=== PATIENT | female | born 2000 | race Caucasian/White ===

== ENCOUNTER → 2018-02-21 15:29 | Outpatient (CLI) | payer BC, SELFPAY ==
[2018-02-21 17:34] LABS: Absolute Lymphocyte Count 2.09 X10^3/ul (0.83-4.51); Absolute Neutrophil Count 5.5 X10^3/uL (2.0-7.7); Basophil# 0.03 X10^3/uL; Basophil% 0.4 % (0-1); Eosinophil# 0.22 X10^3/uL; Eosinophils% 2.6 % (0-5); Hematocrit 38.6 % (37-47); Hemoglobin 12.8 g/dl (12.0-15.0); Lymphocyte # 2.09 X10^3/ul (4.0); Lymphocyte % 24.4 % (19-41); Mean Corp Hgb Conc 33.2 g/gl (32-36); Mean Corpuscular Hgb 30.3 pg (27.0-32.0); Mean Corpuscular Volume 91.5 fL (81-99); Mean Platelet Vol. 11.2 fl (6.2-12.0); Monocyte# 0.72 X10^3/uL; Monocyte% 8.4 % (0-10); Neutrophil # 5.48 X10^3/uL (2.7-7.7); Neutrophil % 64.1 % (47-70); Platelet Count 304 K/mm3 (150-450); RBC Distribution Width CV 13.2 % (11.6-14.6); RBC Distribution Width SD 43.6 fl (35.1-43.9); Red Blood Count 4.22 M/mm3 (4.2-5.4); White Blood Count 8.6 K/mm3 (4.4-11.0)
[2018-02-21 17:42] LABS: POSITIVE COUNT NO; POSITIVE DIFFERENTIAL NO; POSITIVE MORPHOLOGY NO
[2018-02-21 19:16] LABS: Ferritin 13 ng/mL (8-252)
== END ==
PROVIDERS: Family Provider Family Medicine; PCP Family Medicine; Visit Provider Family Medicine
DX: D53.9 Nutritional anemia, unspecified (principal)
CPT/HCPCS: 36415; 82728; 85025

== ENCOUNTER → 2018-07-18 12:15 | Outpatient (CLI) | payer BC, SELFPAY ==
--- NOTE | 2018-07-18 12:17 | RAD_ITS ---
STUDY: X-RAY - RIGHT WRIST REASON FOR EXAM: Female, 18 years old. Right wrist pain TECHNIQUE: 3 view(s) of the wrist were obtained. COMPARISON: None. FINDINGS: Normal visualized distal radius and ulna. Normal radiocarpal articulation. Normal distal radioulnar articulation. Normal carpal bones. Normal carpal articulations. Normal carpometacarpal articulation of the thumb. Normal second through fifth carpometacarpal articulations. Normal visualized metacarpal bones. The soft tissue structures are unremarkable. RAD/Wrist min 3 Views IMPRESSION: Normal x-ray examination of the wrist. Electronically Signed: Dariusz Zafar DO at 8:25 EDT Tel , Service support ,
== END ==
PROVIDERS: Family Provider Family Medicine; PCP Family Medicine; Referring Provider Family Medicine; Visit Provider Family Medicine
DX: M25.531 Pain in right wrist (principal)
CPT/HCPCS: 73110

== ENCOUNTER 2018-10-16 11:00 | Outpatient (RCR) | payer BC, SELFPAY ==
[2018-09-23 08:07] VITALS: BMI 24.9
--- NOTE | 2018-09-23 09:58 | HP.OTEVAL ---
Patient's Visit Information BELEN CARVER is a 18 year old F, referred to Occupational Therapy by Chaparrita Becerra DO, with a diagnosis of R wrist impingement. Date of Evaluation: 09/23/18 Occupational Therapist: Kyara Killian - Subjective Subjective: Arrived from [facility] walk- over. 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 Lopez as pain has increased with weightbearing tasks. She noted that she is home until mid-October to receive treatments. - Pain Right Wrist 1 Pain Intensity Range: 1, 7, 8 - ROM Forearm: WFL Wrist: Flexion R 0-91, L 0-80; Extension R 0-50, L 0-65 MP: WFL PIP: WFL DIP: WFL ROM Comments: increased mobility noted with flexion. This indicated decreased stability of wrist. 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 - Quick DASH-Disab of Arm,Shoulder& Hand Quick DASH Score: 34.2100 - Hand/Wrist Evaluation Total Score of Pain & Functional Sections: 23 - Goals Goal:: Belen to increase R fisher mussel by 20 lbs to promote increased strength and stability of R wrist to promote increased strength and decreased pain with weightbearing tasks to promote returning to PLOF by ADL/IADls. Goal:: Jennifer to have no more than 1/10 pain with repetitive and weightbearing hand and wrist movements 80% of the time to promote increased stability and decrease impingement symptoms by d/c. Goal:: Jennifer to be (i) to complete proper wrist mechanics and alignment with all tasks, including yoga and tumbling tasks, to decrease potential impingement and promote increased ability to return to PLOF by d/c. Goal:: Jennifer to be (I) to complete HEP to promote increased strength and carpal stability of R wrist to promote increased ability to tolerate weightbearing exercises by d/c. - Rehabilitation General Assessment: Jennifer Glover, arrived for OT evaluation on this date of 09/23/18. She was referred from [facility] due to wrist impingement symptoms. She reports increased pain with all weightbearing tasks. OT to complete PRE strengthening, modalities to manage pain, and general training for proper wrist alignment and ergonomics. Rehabilitation Potential: Excellent - Anticipated Interventions Anticipated Interventions: A/AAROM/PROM, Strengthening, Modalities, Orthoses, Joint Protection/Energy Conservation, Ergonomic Education, Fine Motor Coord/Babak, ADL Training, Caregiver Training, Home Program - Visit Plan Frequency: 2x /Week Duration: 3-4 weeks General Plan: OT to promote increased PRE with strengthening program including oscillations, dart throwers movements, and intrinsic and isometric strengthening to promote stability of R wrist. Modalities to be used for pain management as needed and general educated to be completed on ergonomics and proper body positioning. TEXT: Thank you for the opportunity to evaluate your patient. For Medicare and Medicare HMO plans, please review the plan of care and approve it. It will need to be FAXED BACK to us at [phone] for Medicare purposes. Please let me know if there are questions or concerns regarding this plan of care. Physician Signature: Date:
--- NOTE | 2018-09-23 10:02 | HP.OTEVAL_ITS ---
Patient's Visit Information BELEN CARVER is a 18 year old F, referred to Occupational Therapy by Chaparrita Becerra DO, with a diagnosis of R wrist impingement. Date of Evaluation: 09/23/18 Occupational Therapist: Kyara Killian - Subjective Subjective: Arrived from [facility] walk- over. 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 Lopez as pain has increased with weightbearing tasks. She noted that she is home until mid-October to receive treatments. - Pain Right Wrist 1 Pain Intensity Range: 1, 7, 8 - ROM Forearm: WFL Wrist: Flexion R 0-91, L 0-80; Extension R 0-50, L 0-65 MP: WFL PIP: WFL DIP: WFL ROM Comments: increased mobility noted with flexion. This indicated decreased stability of wrist. - Strength Wrist: extension R 4-/5, L 4/5 Cloth Printer: flexed position 2 R 78, L 80 lbs; extended position 2 R 75, L 80 Lateral Pinch: R 18, L 16 Tripod Pinch: R 15, L 22 Tip-to-Tip Pinch: R 10, L 10 - Sensation Sensation Comments: Denies numbness or tingling. - Quick DASH-Disab of Arm,Shoulder& Hand Quick DASH Score: 34.2100 - Hand/Wrist Evaluation Total Score of Pain & Functional Sections: 23 - Goals Goal:: Belen to increase R supervisor scenic arts by 20 lbs to promote increased strength and stability of R wrist to promote increased strength and decreased pain with weightbearing tasks to promote returning to PLOF by ADL/IADls. Goal:: Jennifer to have no more than 1/10 pain with repetitive and weightbearing hand and wrist movements 80% of the time to promote increased stability and decrease impingement symptoms by d/c. Goal:: Jennifer to be (i) to complete proper wrist mechanics and alignment with all tasks, including yoga and tumbling tasks, to decrease potential impingement and promote increased ability to return to PLOF by d/c. Goal:: Jennifer to be (I) to complete HEP to promote increased strength and carpal stability of R wrist to promote increased ability to tolerate weightbearing exercises by d/c. - Rehabilitation General Assessment: Jennifer Glover, arrived for OT evaluation on this date of 09/23/18. She was referred from [facility] due to wrist impingement symptoms. She reports increased pain with all weightbearing tasks. OT to complete PRE strengthening, modalities to manage pain, and general training for proper wrist alignment and ergonomics. Rehabilitation Potential: Excellent - Anticipated Interventions Anticipated Interventions: A/AAROM/PROM, Strengthening, Modalities, Orthoses, Joint Protection/Energy Conservation, Ergonomic Education, Fine Motor Coord/Babak, ADL Training, Caregiver Training, Home Program - Visit Plan Frequency: 2x /Week Duration: 3-4 weeks General Plan: OT to promote increased PRE with strengthening program including oscillations, dart throwers movements, and intrinsic and isometric strengthening to promote stability of R wrist. Modalities to be used for pain management as needed and general educated to be completed on ergonomics and proper body positioning. TEXT: Thank you for the opportunity to evaluate your patient. For Medicare and Medicare HMO plans, please review the plan of care and approve it. It will need to be FAXED BACK to us at [phone] for Medicare purposes. Please let me know if there are questions or concerns regarding this plan of care. Physician Signature: Date:
--- NOTE | 2018-10-16 11:32 | HP.OTDCSUM ---
HP - OT D/C Summary It has been my pleasure to treat BELEN CARVER under orders from Chaparrita Becerra DO for the diagnosis of R wrist impingement for a total of 8 visit(s). Please see the following information for a summary of their discharge status. - Overall Improvement % Improvement: 65 - Objective Objective/Function: Reassessment completed on this date of 10/16/17. Measurements are as follows: ROM: Wrist: -flexion R 0-89, L 0-83. - extension R 0-56, L 0-64. Strength assessment: - All Round Logger flexed position R 83, L 87. - All Round Logger extended R 76, L 87. - Lateral Pinch R 22, L 16. - tripod R 20, L 20. - pincer R 11, L 9. 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 erecting crane operator extended positions 2: R 90, L 87 lbs. Jennifer has progressed with therapy. She will return to college and will be d/c at this time. - Goals Patient Goals: Regain Mobility, Regain Strength, Decrease Pain, Improve Fine Motor Skills, Use Hand/Wrist/Arm Normally Again, Decrease Tingling/Numbness, Increase ROM, Be More Independent in ADLS, Resume Former Household Responsibilities (Cooking,Cleaning,Yard, etc.), Resume Hobbies Goal:: Belen to increase R erecting crane operator by 20 lbs to promote increased strength and stability of R wrist to promote increased strength and decreased pain with weightbearing tasks to promote returning to PLOF by ADL/IADls. Goal:: Jennifer to have no more than 1/10 pain with repetitive and weightbearing hand and wrist movements 80% of the time to promote increased stability and decrease impingement symptoms by d/c. Goal:: Jennifer to be (i) to complete proper wrist mechanics and alignment with all tasks, including yoga and tumbling tasks, to decrease potential impingement and promote increased ability to return to PLOF by d/c. Goal:: Jennifer to be (I) to complete HEP to promote increased strength and carpal stability of R wrist to promote increased ability to tolerate weightbearing exercises by d/c. - Plan Plan: Jennifer has progressed with all therapy tasks. She has completed carpal stability and strengthening exercises to promote stability of R wrist to help decrease pain. Pain has decreased but not completed dissipated. Pain is only when she completed weightbearing tasks and she has been instructed in adapted and compensation techniques to continue preferred leisure tasks of thicker yoga mat, fisted hand when weightbearing, or raise heal of hand up to complete activating flexors more than extensor. She is to complete HEP as instructed. Handouts provided and demonstrated understanding. - D/C Information If there are questions or concerns regarding this patient's occupational therapy, please fell free to call me at [phone]. Thank you for the referral of this patient. Sincerely, Kyara Killian
--- OUTSIDE RECORDS SUMMARY | 2018-12-25 14:37 | XMS RPT_ITS ---
:2000 Author Organization OHIP Care Team Providers Name Role Phone Chaparrita Becerra Attending Unavailable Yajairaiff, Kathie Referring Unavailable Chaparrita Becerra Attending Unavailable Jolliff, Kathie Primary Care Unavailable Chaparrita Becerra Referring Unavailable JolliffKathie Attending Unavailable Jolliff, Kathie Primary Care Unavailable Jolliff, Kathie Attending Unavailable Jolliff, Kathie Referring Unavailable Jolliff, Kathie Primary Care Unavailable PROBLEMS PROBLEMS DATE TYPE CONDITION / CODE ATTENDING STATUS SOURCE 10/20/2018 Unknown M25.831 - Other Chaparrita Becerra Active [place] specified joint Community disorders, right Hospital wrist / Repository M25.831(ICD-10) 07/18/2018 Unknown M25.532 - Pain Kathie Cody Active [place] in left wrist / Community M25.532(ICD-10) Hospital Repository PROCEDURES PROCEDURES No Procedure Records FoundRESULTS RESULTS OT D/C SUMMARY Observed: 10/17/2018 Status: F Source: NADIA 12:50 PM [facility] REPOS[facility] Occupational [facility] [address] [place] [address] / REHABILITATION SERVICES DISCHARGE SUMMARY MR#: [id number] Acct: [id number] Name: SHELBY CARVER Rep #: [id number] : 2000 18 From: Kyara Killian Referring Dr.: Chaparrita Becerra DO Status: REG RCR Eval Date: Discharge Date: - OT D/C Summary It has been my pleasure to treat SHELBY CARVER under orders from Chaparrita Becerra DO, for the diagnosis of R wrist impingement for a total of 8 visit(s). Please see the following information for a summary of their discharge status. - Overall Improvement % Improvement: 65 - Objective Objective/Function: Reassessment completed on this date of 10/16/17. Measurements are as follows: ROM: Wrist: -flexion R 0-89, L 0-83. - extension R 0-56, L 0-64. Strength assessment: - Cattle Feeder flexed position R 83, L 87. - Cattle Feeder extended R 76, L 87. - Lateral Pinch R 22, L 16. - tripod R 20, L 20. - pincer R 11, L 9. Previous strength measurements for yarn handler only occurring at end of session on 10/14/17 are as follows: Cattle Feeder in flexed position 2: R 100, L 75 lbs. yarn handler extended positions 2: R 90, L 87 lbs. Jennifer has progressed with therapy. She will return to college and will be d/c at this time. - Goals Patient Goals: Regain Mobility, Regain Strength, Decrease Pain, Improve Fine Motor Skills, Use Hand/Wrist/Arm Normally Again, Decrease Tingling/Numbness, Increase ROM, Be More Independent in ADLS, Resume Former Household Responsibilities (Cooking,Cleaning,Yard, etc.), Resume Hobbies Goal:: Shelby to increase R yarn handler by 20 lbs to promote increased strength and stability of R wrist to promote increased strength and decreased pain with weightbearing tasks to promote returning to PLOF by ADL/IADls. Goal:: Jennifer to have no more than 1/10 pain with repetitive and weightbearing hand and wrist movements 80% of the time to promote increased stability and decrease impingement symptoms by d/c. Goal:: Jennifer to be (i) to complete proper wrist mechanics and alignment with all tasks, including yoga and tumbling tasks, to decrease potential impingement and promote increased ability to return to PLOF by d/c. Goal:: Jennifer to be (I) to complete HEP to promote increased strength and carpal stability of R wrist to promote increased ability to tolerate weightbearing exercises by d/c. - Plan Plan: Jennifer has progressed with all therapy tasks. She has completed carpal stability and strengthening exercises to promote stability of R wrist to help decrease pain. Pain has decreased but not completed dissipated. Pain is only when she completed weightbearing tasks and she has been instructed in adapted and compensation techniques to continue preferred leisure tasks of thicker yoga mat, fisted hand when weightbearing, or raise heal of hand up to complete activating flexors more than extensor. She is to complete HEP as instructed. Handouts provided and demonstrated understanding. - D/C Information If there are questions or concerns regarding this patient's occupational therapy, please fell free to call me at [phone]. Thank you for the referral of this patient. Sincerely, Kyara Killian <Electronically signed by Kyara Killian > 10/17/18 0130 CC: Kathie Cody MD; Chaparrita Becerra DO KMB Signed ORTHOPEDIC VISIT Observed: 09/23/2018 Status: F Source: [place] REPORT 1:27 PM [facility] Orthopaedics AND Sports Medicine [address] [place] [address] OFFICE VISIT Date of Service: 09/23/18 MR#: [id number] Acct: [id number] Name: SHELBY CARVER Rep #: [id number] : 2000 Provider: Chaparrita Becerra DO Age/Sex: 18/F Location: [facility] Status: Signed Intake Vital Signs09/23/18 Height 5 ft 4 in 09/23/18 Weight: 145 lb 09/23/18 Body Mass Index (BMI) 24.9 Intake Visit Reasons: LEFT WRIST Is patient in pain?: Yes HPI LEFT WRIST: Details: SHELBY CARVER is a 18 year old F here today for right wrist pain since the summer with no known injury. She saw her pcp who did xrays that were negative. She then referred her to us, Ruby is in [place] and was just able to see us over the holidays. 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 No pain with rom, no swelling and no bracing. Denies numbness, tingling or other associated symptoms. She has a strong family history of wrist cysts and RA. She does complain of joint pain with dancing but nothing upper body. Ortho Exam Right Wrist/Hand Skin/Wound: Yes CDI, No Swelling Contralateral Normal: Yes A1 agustin trigger: No Right Wrist: Yes ROM-Extension 0-60, ROM-Supination 0-90, ROM-Flexion 0-80 and ROM-Pronation 0-80; no Diaz Test Motor: EPL: 5, FDP-2: 5, 1st Dorsal Interosseous: 5, APB: 5 Sensation: Radial: I, Ulnar: I, Median: I Left Wrist/Hand Skin/Wound: No Swelling Assessment AND Plan 1. Impingement syndrome of right wrist M25.831 Plan Personally reviewed the patient's medical history, medications, surgeries and recent exams if available. X-rays were reviewed. There is no obvious fracture, dislocation, or lucency noted. Educated on the anatomy of the wrist and explained that she has impingement, there is no palpable cyst today and no ligamentous laxity. Her treatment options are do nothing, wear a brace, OT for ultrasound. If that fails we can try and injection or order an MRI. Follow up as needed or sooner if pain, swelling, numbness or associated symptoms, or concerns develop. All questions answered. Patient in agreement of plan. Coding Level of Care Code Off vis,new,level 3 Diagnoses Impingement syndrome of right wrist M25.831 09/23/18 1327 <Electronically signed by Chaparrita Becerra DO> Date Chaparrita Becerra DO Cosigner Signature: Date (if applicable) CC: OT GENERAL EVALUATION Observed: 09/23/2018 Status: F Source: NADIA 10:16 AM [facility] Occupational [facility] [address] [place] [address] Fax REHABILITATION SERVICES INITIAL EVALUATION MR#: [id number] Acct: [id number] Name: SHELBY CARVER Rep #: [id number] : 2000 18 From: Kyara Killian Referring Dr.: Chaparrita Becerra DO Status: REG RCR Insurance: ALLI Sylviemn Date: SELF PAY INSURANCE Patient's Visit Information SHELBY CARVER is a 18 year old F, referred to Occupational Therapy by Chaparrita Becerra DO, with a diagnosis of R wrist impingement. Date of Evaluation: 09/23/18 Occupational Therapist: Kyara Killian - Subjective Subjective: Arrived from [facility] ortho walk- over. 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 Lopez as pain has increased with weightbearing tasks. She noted that she is home until mid-October to receive treatments. - Pain Right Wrist 1 Pain Intensity Range: 1, 7, 8 - ROM Forearm: WFL Wrist: Flexion R 0-91, L 0-80; Extension R 0-50, L 0-65 MP: WFL PIP: WFL DIP: WFL ROM Comments: increased mobility noted with flexion. This indicated decreased stability of wrist. - Strength Wrist: extension R 4-/5, L 4/5 Cattle Feeder: flexed position 2 R 78, L 80 lbs; extended position 2 R 75, L 80 Lateral Pinch: R 18, L 16 Tripod Pinch: R 15, L 22 Tip-to-Tip Pinch: R 10, L 10 - Sensation Sensation Comments: Denies numbness or tingling. - Quick DASH-Disab of Arm,Shoulder AND Hand Quick DASH Score: 34.2100 - Hand/Wrist Evaluation Total Score of Pain AND Functional Sections: 23 - Goals Goal:: Shelby to increase R yarn handler by 20 lbs to promote increased strength and stability of R wrist to promote increased strength and decreased pain with weightbearing tasks to promote returning to PLOF by ADL/IADls. Goal:: Jennifer to have no more than 1/10 pain with repetitive and weightbearing hand and wrist movements 80% of the time to promote increased stability and decrease impingement symptoms by d/c. Goal:: Jennifer to be (i) to complete proper wrist mechanics and alignment with all tasks, including yoga and tumbling tasks, to decrease potential impingement and promote increased ability to return to PLOF by d/c. Goal:: Jennifer to be (I) to complete HEP to promote increased strength and carpal stability of R wrist to promote increased ability to tolerate weightbearing exercises by d/c. - Rehabilitation General Assessment: Jennifer Glover, arrived for OT evaluation on this date of 09/23/18. She was referred from [facility] ortho due to wrist impingement symptoms. She reports increased pain with all weightbearing tasks. OT to complete PRE strengthening, modalities to manage pain, and general training for proper wrist alignment and ergonomics. Rehabilitation Potential: Excellent - Anticipated Interventions Anticipated Interventions: A/AAROM/PROM, Strengthening, Modalities, Orthoses, Joint Protection/Energy Conservation, Ergonomic Education, Fine Motor Coord/Babak, ADL Training, Caregiver Training, Home Program - Visit Plan Frequency: 2x /Week Duration: 3-4 weeks General Plan: OT to promote increased PRE with strengthening program including oscillations, dart throwers movements, and intrinsic and isometric strengthening to promote stability of R wrist. Modalities to be used for pain management as needed and general educated to be completed on ergonomics and proper body positioning. TEXT: Thank you for the opportunity to evaluate your patient. For Medicare and Medicare HMO plans, please review the plan of care and approve it. It will need to be FAXED BACK to us at [phone] for Medicare purposes. Please let me know if there are questions or concerns regarding this plan of care. Physician Signature: Date: <Electronically signed by Kyara Killian > 09/23/18 1016 CC: Kathie Cody MD; Chaparrita Becerra DO ALBERTO Signed For Medicare only, by signing this I certify the plan of care. Physicians Signature Date WRIST MIN 3 VIEWS Observed: 07/18/2018 Status: F Source: NADIA 12:17 PM [facility] Imaging Services [address] [place] [address] Wrist min 3 Views MR#: [id number] Acct: [id number] Name: SHELBY CARVER Rep #: [id number] : 2000 F 18 From: Dariusz Zafar DO PCP: Kathie Cody MD Status: REG CLI Study: Wrist min 3 Views Date of Exam: 07/18/18 Exam# [id number] Ordering Dr: Kathie Cody MD STUDY: X-RAY - RIGHT WRIST REASON FOR EXAM: Female, 18 years old. Right wrist pain TECHNIQUE: 3 view(s) of the wrist were obtained. COMPARISON: None. FINDINGS: Normal visualized distal radius and ulna. Normal radiocarpal articulation. Normal distal radioulnar articulation. Normal carpal bones. Normal carpal articulations. Normal carpometacarpal articulation of the thumb. Normal second through fifth carpometacarpal articulations. Normal visualized metacarpal bones. The soft tissue structures are unremarkable. RAD/Wrist min 3 Views IMPRESSION: Normal x-ray examination of the wrist. Electronically Signed: Dariusz Zafar DO at 8:25 EDT Tel , Service support , CC: Kathie Cody MD Film Librarian: Signed CBC W/DIFF, AUTOMATED Collected: 02/21/2018 Status: F Source: NADIA 3:32 PM [facility] RE[facility] TYPE CODE TESTS RESULT OUT OF RANGE REFERENCE UNITS LAB L100.1000 4.4-11.0 K/mm3 Normal WBC 8.6 LAB L100.1200 4.2-5.4 M/mm3 Normal RBC 4.22 LAB L100.1300 12.0-15.0 g/dl Normal HGB 12.8 LAB L100.1400 37-47 % Normal HCT 38.6 LAB L100.1500 81-99 fL Normal MCV 91.5 LAB L100.1600 27.0-32.0 pg Normal MCH 30.3 LAB L100.1700 32-36 g/gl Normal MCHC 33.2 LAB L100.1810 11.6-14.6 % Normal RDW CV 13.2 LAB L100.1820 35.1-43.9 fl Normal RDW SD 43.6 LAB L100.1900 150-450 K/mm3 Normal PLT 304 LAB L100.2000 6.2-12.0 fl Normal MPV 11.2 LAB L100.2100 47-70 % Normal NEUT% 64.1 LAB L100.2200 19-41 % Normal LY% 24.4 LAB L100.2300 0-10 % Normal MONO% 8.4 LAB L100.2400 0-5 % Normal EO% 2.6 LAB L100.2500 0-1 % Normal BASO% 0.4 LAB L100.2550 0.0-0.9 % Normal IM GRAN % 0.100 Result Comment: IG% - Immature Granulocytes (promyelocytes, myelocytes and metamyelocytes) > 1% indicates that a LEFT SHIFT is Present. LAB L100.2620 2.0-7.7 X10 3/uL Normal Absolute Neut 5.5 LAB L100.2720 0.83-4.51 X10 3/ul Normal Absolute Lymph 2.09 Performed By: #### L100.0100 #### [facility] [address] [place], [address] FERRITIN Collected: 02/21/2018 Status: F Source: NADIA 3:32 PM [facility] TYPE CODE TESTS RESULT OUT OF RANGE REFERENCE UNITS LAB L503.6550 8-252 ng/mL Normal FERRITIN 13 Performed By: #### L503.6550 #### [facility] [address], [address] ALLERGIES ALLERGIES No Allergies Records FoundENCOUNTERS ENCOUNTERS ADMIT/DISCHARGE ACCOUNT ADMITTING ENCOUNTER LOCATION SOURCE NUMBER CLASS 10/16/2018 [id number] Ambulatory [place] [facility] [address] [facility] ing:OT Repository 09/23/2018/ [id number] Ambulatory BMSBuilding:B [facility] 8 7 MS.SMO [facility] Repository 07/18/2018 [id number] Ambulatory [place] [facility] [address] [facility] ing:MTRAD Repository 02/21/2018 [id number] [facility] [address] [facility] ing:MFPLAB Repository PAYERS PAYERS ENCOUNTER GUARANTOR PAYER SUBSCRIBER SOURCE 10/16/2018 SHELBY BALTAZAR Primary DANIAL L [place] [id number] SPARR Insurance:ANTHEMPolic [place]BERDOB: [place] Number: [id number] Hospital 29089Hzt: 330 [id number] Repository [phone] () Date:[id number] [address] [place] [address] 13064LX: 10/16/2018 Secondary NOT GIVENUNK [place] Insurance:SELF PAY [facility] Number: Effective Repository Date:2018-09-23 09/23/2018 SHELBY PAIGE [facility] DANIAL L [place] [id number] SPARR Insurance:ANTHEMPolic [place]UMBERDOB: [place] Number: [id number] Hospital 25316Pfv: 330 [id number] Repository [phone] (HP) Date:[id number] [address] [place] [address]85[address]LN: 09/23/2018 Secondary NOT GIVENUNK [place] Insurance:SELF PAY [facility] Number: Effective Repository Date:2018-09-23 07/18/2018 SHELBY BALTAZAR Primary TELLY L [place] [id number] [place] Insurance:ANTHEMPolic GUMBERDOB: [place] Number: [id number] [facility] [address]32[address]Xip: (330 [id number] Repository [phone] () Date:[id number] [address] [address]UP: 07/18/2018 Secondary NOT GIVENUNK [place] Insurance:SELF PAY [facility] Number: Effective Repository Date:2018-07-18 02/21/2018 SHELBY BALTAZAR Primary Telly GumberDOB: [place] [id number] SPARR Insurance:ANTHEMPolic [id number] [place] Number: [facility] [id number]: (330 [id number] Repository [phone] () Date:[id number] [id number] [place] [address] 16720OM: 02/21/2018 Secondary NOT GIVENUNK [place] Insurance:SELF PAY [facility] Number: Effective Repository Date:2018-02-21
== END 2018-10-16 19:00 | disposition home or self-care (01) ==
LOC: OT 11:00
PROVIDERS: Family Provider Family Medicine; PCP Family Medicine; Referring Provider Orthopaedic Surgery; Visit Provider Orthopaedic Surgery
DX: M25.831 Other specified joint disorders, right wrist (principal)
CPT/HCPCS: 97035; 97110; 97166; 97168; 97530

== ENCOUNTER → 2019-11-20 | Outpatient (CLI) | payer BC, SELFPAY ==
[2018-09-23 08:07] VITALS: BMI 24.9
--- NOTE | 2019-11-20 17:09 | RAD_ITS ---
STUDY: X-RAY EXAMINATION: SCOLIOSIS SERIES REASON FOR EXAM: Female, 19 years old. scoliosis, back pain TECHNIQUE: view(s) of the thoracolumbar spine were obtained in the upright standing position. COMPARISON: None. FINDINGS: There is a 27 degrees lower thoracic scoliosis with convexity to the left with the apex at T9 and a compensatory 22 degree thoracolumbar scoliosis with convexity to the right with apex at L2. There is no evidence of a sacral base tilt RAD/Scoliosis 1 view IMPRESSION: A 27 degree lower thoracic scoliosis with convexity to the left and a compensatory 22 degree thoracolumbar scoliosis with convexity to the right. No evidence of a sacral-base tilt Electronically Signed: Alejandro Wilkes MD at 7:45 EST Tel , Service support ,
== END | disposition home or self-care (01) ==
LOC: MTRAD 17:08
PROVIDERS: PCP Family Medicine; Referring Provider Family Medicine; Visit Provider Family Medicine
DX: M41.9 Scoliosis, unspecified (principal)
CPT/HCPCS: 72081

== ENCOUNTER → 2020-04-20 | Outpatient (CLI) | payer BC, SELFPAY ==
[2020-04-20 09:43] VITALS: BMI 24.9
[2020-04-20 10:16] LABS: Absolute Lymphocyte Count 1.82 X10^3/uL (0.83-4.51); Absolute Neutrophil Count 4.4 X10^3/uL (2.0-7.7); Basophil# 0.06 X10^3/uL; Basophil% 0.9 % (0-1); Eosinophil# 0.13 X10^3/uL; Eosinophils% 1.9 % (0-5); Hematocrit 41.5 % (37-47); Hemoglobin 13.4 g/dL (12.0-15.0); Lymphocyte # 1.82 X10^3/ul (4.0); Lymphocyte % 26.9 % (19-41); Mean Corp Hgb Conc 32.3 g/dL (32-36); Mean Corpuscular Hgb 30.5 pg (27.0-32.0); Mean Corpuscular Volume 94.3 fL (81-99); Mean Platelet Vol. 10.6 fl (6.2-12.0); Monocyte# 0.38 X10^3/uL; Monocyte% 5.6 % (0-10); NRBC Flagged by Analyzer 0 % (0-5); Neutrophil # 4.36 X10^3/uL (2.7-7.7); Neutrophil % 64.4 % (47-70); Platelet Count 291 K/mm3 (150-450); RBC Distribution Width CV 12.6 % (11.6-14.6); RBC Distribution Width SD 43.1 fl (35.1-43.9); White Blood Count 6.8 K/mm3 (4.4-11.0)
[2020-04-20 10:39] LABS: Thyroid Stim Hormone (TSH) 1.19 uIU/mL (0.358-3.74)
[2020-04-20 16:05] LABS: Chlamydia Trachomatis by PCR Negative (Negative); Neisserai gonorrhoeae by PCR Negative (Negative); Probe Check PASS; Sample Adequacy Control PASS; Specimen Processing Control PASS
== END | disposition home or self-care (01) ==
PROVIDERS: PCP Family Medicine; Referring Provider Nurse Practitioner Women's Health; Visit Provider Nurse Practitioner Women's Health
DX: N92.0 Excessive and frequent menstruation with regular cycle (principal); Z11.3 Encounter for screening for infections with a predominantly sexual mode of transmission
CPT/HCPCS: 36415; 84443; 85025; 87491; 87591

== ENCOUNTER → 2020-07-25 | Outpatient (CLI) | payer BC, SELFPAY ==
[2020-07-25 16:29] LABS: Chlamydia Trachomatis by PCR Negative (Negative); Neisserai gonorrhoeae by PCR Negative (Negative); Probe Check PASS; Sample Adequacy Control PASS; Specimen Processing Control PASS
== END | disposition home or self-care (01) ==
LOC: LABSPEC 13:03
PROVIDERS: PCP Family Medicine; Referring Provider Nurse Practitioner Women's Health; Visit Provider Nurse Practitioner Women's Health
DX: Z11.3 Encounter for screening for infections with a predominantly sexual mode of transmission (principal)
CPT/HCPCS: 87491; 87591

== ENCOUNTER → 2020-08-29 | Outpatient (CLI) | payer BC, SELFPAY ==
[2020-08-29 09:09] VITALS: BMI 24.5
== END | disposition home or self-care (01) ==
LOC: LABSPEC 13:18
PROVIDERS: PCP Family Medicine; Visit Provider Nurse Practitioner Women's Health
DX: N76.0 Acute vaginitis (principal)
CPT/HCPCS: 87070; 87205

== ENCOUNTER → 2020-10-04 | Outpatient (CLI) | payer BC, SELFPAY ==
[2020-10-04 11:46] VITALS: BMI 24.5
== END | disposition home or self-care (01) ==
LOC: LABSPEC 12:47
PROVIDERS: PCP Family Medicine; Visit Provider Nurse Practitioner Women's Health
DX: N94.9 Unspecified condition associated with female genital organs and menstrual cycle (principal)
CPT/HCPCS: 87070; 87205

== ENCOUNTER 2021-11-24 10:16 | Outpatient (CLI) | payer BC, SELFPAY ==
--- NOTE | 2021-11-24 10:19 | RAD_ITS ---
STUDY: X-RAY - RIGHT WRIST REASON FOR EXAM: Female, 21 years old. Wrist pain. TECHNIQUE: 3 view(s) of the wrist were obtained. COMPARISON: 07/18/2018. FINDINGS: Normal visualized distal radius and ulna. Normal radiocarpal articulation. Normal distal radioulnar articulation. Normal carpal bones. Normal carpal articulations. Normal carpometacarpal articulation of the thumb. Normal second through fifth carpometacarpal articulations. Normal visualized metacarpal bones. The soft tissue structures are unremarkable. RAD/Wrist min 3 Views IMPRESSION: No interval change. Normal wrist. Electronically Signed: Shahriar Hawk MD at 10:54 EST ,
== END 2021-11-24 23:59 | disposition home or self-care (01) ==
LOC: MTRAD 10:18
PROVIDERS: PCP Family Medicine; Referring Provider Family Medicine; Visit Provider Family Medicine
DX: M25.531 Pain in right wrist (principal)
CPT/HCPCS: 73110

== ENCOUNTER 2022-01-08 15:54 | Outpatient (CLI) | payer BC, SELFPAY ==
--- NOTE | 2022-01-08 16:05 | MRI_ITS ---
EXAM: MR RIGHT UPPER EXTREMITY WITHOUT INTRAVENOUS CONTRAST, WRIST CLINICAL INDICATION: pain TECHNIQUE: Multiplanar and multisequence MR images of the right wrist without intravenous contrast. This report was created using [employer] report generation technology. COMPARISON: XR Nov 24 2021 10:30am FINDINGS: LIGAMENTS: SCAPHOLUNATE: Unremarkable. Intact. LUNOTRIQUETRAL: Unremarkable. Intact. TENDONS: FLEXOR COMPARTMENTS: Unremarkable. Intact. No tenosynovitis. EXTENSOR COMPARTMENTS: Unremarkable. Intact. No tenosynovitis. NERVES: MEDIAN: Unremarkable. Median nerve is normal in size and signal intensity. ULNAR: Unremarkable. Ulnar nerve is normal in size and signal intensity. MUSCLES: Unremarkable. FLUID: Unremarkable. No joint effusion. CARTILAGE: Unremarkable. The articular cartilage is preserved. TRIANGULAR FIBROCARTILAGE COMPLEX: Unremarkable. Intact without communicating defect. BONES/JOINTS: Unremarkable. No fracture. No abnormal bone marrow signal. No joint effusion or synovitis. OTHER SOFT TISSUES: Unremarkable. No ganglion. MRI/Upper Ext Joint Only(Routine) IMPRESSION: Unremarkable MRI of the right wrist. Electronically Signed: Josh Granados MD at 19:38 EDT ,
== END 2022-01-08 23:59 | disposition home or self-care (01) ==
LOC: MRI 15:54
PROVIDERS: PCP Family Medicine; Visit Provider Orthopaedic Surgery
DX: M25.531 Pain in right wrist (principal); G89.29 Other chronic pain
CPT/HCPCS: 73221

== ENCOUNTER → 2022-03-13 | Outpatient (CLI) | payer BC, SELFPAY ==
[2022-03-13 12:02] LABS: Erythrocyte Sedimentation Rate 17 mm/hr (0-30)
[2022-03-13 12:07] LABS: Absolute Lymphocyte Count 1.84 X10^3/uL (0.83-4.51); Absolute Neutrophil Count 4.6 X10^3/uL (2.0-7.7); Basophil# 0.05 X10^3/uL; Basophil% 0.7 % (0-1); Eosinophil# 0.14 X10^3/uL; Hemoglobin 12.9 g/dL (12.0-15.0); Lymphocyte # 1.84 X10^3/ul (0.83-4.51); Lymphocyte % 25.7 % (19-41); Mean Corp Hgb Conc 32.3 g/dL (32-36); Mean Corpuscular Hgb 28.9 pg (27.0-32.0); Mean Corpuscular Volume 89.5 fL (81-99); Mean Platelet Vol. 11.3 fl (6.2-12.0); Monocyte# 0.47 X10^3/uL; Monocyte% 6.6 % (0-10); NRBC Flagged by Analyzer 0 % (0-5); Neutrophil % 64.2 % (47-70); Platelet Count 331 K/mm3 (150-450); RBC Distribution Width CV 13.2 % (11.6-14.6); RBC Distribution Width SD 43.4 fl (35.1-43.9); Red Blood Count 4.47 M/mm3 (4.2-5.4); White Blood Count 7.2 K/mm3 (4.4-11.0)
[2022-03-13 12:24] LABS: ALB/GLOB Ratio 0.9 RATIO (0.9-2.4); AST(SGOT) 21 U/L (15-37); Alanine Aminotransfer ALT/SGPT 28 U/L (13-56); Albumin, Serum 3.9 g/dL (3.2-5.0); Alkaline Phosphatase 83 U/L (45-117); Anion Gap 6 (5-15); BUN 13 mg/dL (7-18); BUN/Creat Ratio 16.5 RATIO (10-20); CRP 9.76 mg/L (0.0-3.0); Calcium,Total 9.4 mg/dL (8.5-10.1); Chloride 107 mmol/L (98-107); Creatinine, Serum 0.79 mg/dL (0.55-1.02); EST Glomerular Filtration Rate 96 mL/min (>60); Est Glom Filt Rate - Afr Amer 116 mL/min (>60); Globulin 4.2 g/dL (2.2-4.2); Glucose 79 mg/dL (74-106); Potassium 3.9 mmol/L (3.5-5.1); Protein, Total 8.1 g/dL (6.4-8.2); Rheumatoid Factor < 10.0 IU/mL (<15); Sodium Level 138 mmol/L (136-145)
[2022-03-13 13:22] LABS: Hepatitis B Surface Antibody Non-Reactive; Hepatitis B Surface Antigen Non-Reactive (Nonreactive); Hepatitis C Antibody Non-Reactive (Nonreactive)
[2022-03-14 21:03] LABS: ANTINUCLEAR ANTIBODIES DIRECT Negative (Negative)
[2022-03-15 11:09] LABS: CCP IgG Antibodies 7 units (0-19)
== END | disposition home or self-care (01) ==
LOC: MTLAB 09:41
PROVIDERS: PCP Family Medicine; Referring Provider Internal Medicine Rheumatology; Visit Provider Internal Medicine Rheumatology
DX: M06.4 Inflammatory polyarthropathy (principal); F41.9 Anxiety disorder, unspecified; J45.909 Unspecified asthma, uncomplicated; R21 Rash and other nonspecific skin eruption
CPT/HCPCS: 36415; 80053; 85025; 85652; 86038; 86140; 86200; 86431; 86706; 86803; 87340

== ENCOUNTER → 2022-05-16 | Outpatient (CLI) | payer BC, SELFPAY ==
[2022-05-18 06:07] LABS: Chlamydia By Nucleic Acid AMP Negative (Negative)
[2022-05-21 17:06] LABS: HPV Reflexed? NOT INDICATED
[2022-05-21 18:03] LABS: Gonococcus By Nucleic Acid AMP Negative (Negative)
== END | disposition home or self-care (01) ==
LOC: LABSPEC 11:12
PROVIDERS: PCP Family Medicine; Referring Provider Nurse Practitioner Women's Health; Visit Provider Nurse Practitioner Women's Health
DX: Z12.4 Encounter for screening for malignant neoplasm of cervix (principal); Z11.3 Encounter for screening for infections with a predominantly sexual mode of transmission
CPT/HCPCS: 87491; 87591; 88175; G0145

== ENCOUNTER → 2022-07-11 | Outpatient (CLI) | payer BC, SELFPAY ==
[2022-07-11 12:34] LABS: Absolute Lymphocyte Count 1.66 X10^3/uL (0.83-4.51); Absolute Neutrophil Count 4.4 X10^3/uL (2.0-7.7); Basophil# 0.06 X10^3/uL; Basophil% 0.9 % (0-1); Eosinophil# 0.11 X10^3/uL; Eosinophils% 1.7 % (0-5); Hematocrit 38.4 % (37-47); Hemoglobin 12.1 g/dL (12.0-15.0); Lymphocyte # 1.66 X10^3/ul (0.83-4.51); Lymphocyte % 24.9 % (19-41); Mean Corp Hgb Conc 31.5 g/dL (32-36); Mean Corpuscular Hgb 27.8 pg (27.0-32.0); Mean Corpuscular Volume 88.1 fL (81-99); Mean Platelet Vol. 11.6 fl (6.2-12.0); Monocyte# 0.41 X10^3/uL; Monocyte% 6.2 % (0-10); NRBC Flagged by Analyzer 0 % (0-5); Neutrophil # 4.39 X10^3/uL (2.7-7.7); Neutrophil % 65.8 % (47-70); Platelet Count 285 K/mm3 (150-450); RBC Distribution Width CV 13.8 % (11.6-14.6); RBC Distribution Width SD 44.3 fl (35.1-43.9); Red Blood Count 4.36 M/mm3 (4.2-5.4); White Blood Count 6.7 K/mm3 (4.4-11.0)
[2022-07-11 13:34] LABS: ALB/GLOB Ratio 0.8 RATIO (0.9-2.4); AST(SGOT) 18 U/L (15-37); Alanine Aminotransfer ALT/SGPT 33 U/L (13-56); Albumin, Serum 3.6 g/dL (3.2-5.0); Alkaline Phosphatase 61 U/L (45-117); Anion Gap 5 (5-15); BUN 10 mg/dL (7-18); BUN/Creat Ratio 11.7 RATIO (10-20); Calcium,Total 9.2 mg/dL (8.5-10.1); Chloride 110 mmol/L (98-107); Creatinine, Serum 0.85 mg/dL (0.55-1.02); EST Glomerular Filtration Rate 87 mL/min (>60); Est Glom Filt Rate - Afr Amer 105 mL/min (>60); Globulin 4.3 g/dL (2.2-4.2); Glucose 87 mg/dL (74-106); Potassium 4.2 mmol/L (3.5-5.1); Protein, Total 7.9 g/dL (6.4-8.2); Sodium Level 141 mmol/L (136-145)
== END | disposition home or self-care (01) ==
LOC: MTLAB 11:20
PROVIDERS: PCP Family Medicine; Referring Provider Internal Medicine Rheumatology; Visit Provider Internal Medicine Rheumatology
DX: M06.4 Inflammatory polyarthropathy (principal); F41.9 Anxiety disorder, unspecified; J45.909 Unspecified asthma, uncomplicated; R21 Rash and other nonspecific skin eruption
CPT/HCPCS: 36415; 80053; 85025

== ENCOUNTER → 2022-09-26 | Outpatient (CLI) | payer BC, SELFPAY ==
[2022-09-26 12:41] LABS: Absolute Lymphocyte Count 1.67 X10^3/uL (0.83-4.51); Absolute Neutrophil Count 4.7 X10^3/uL (2.0-7.7); Basophil# 0.05 X10^3/uL; Basophil% 0.7 % (0-1); Eosinophils% 1.4 % (0-5); Hematocrit 37.8 % (37-47); Hemoglobin 12.5 g/dL (12.0-15.0); Lymphocyte # 1.67 X10^3/ul (0.83-4.51); Lymphocyte % 23.2 % (19-41); Mean Corp Hgb Conc 33.1 g/dL (32-36); Mean Corpuscular Hgb 28.7 pg (27.0-32.0); Mean Corpuscular Volume 86.7 fL (81-99); Mean Platelet Vol. 10.9 fl (6.2-12.0); Monocyte# 0.61 X10^3/uL; Monocyte% 8.5 % (0-10); NRBC Flagged by Analyzer 0 % (0-5); Neutrophil # 4.74 X10^3/uL (2.7-7.7); Neutrophil % 65.9 % (47-70); Platelet Count 316 K/mm3 (150-450); RBC Distribution Width CV 14.2 % (11.6-14.6); RBC Distribution Width SD 44.9 fl (35.1-43.9); Red Blood Count 4.36 M/mm3 (4.2-5.4); White Blood Count 7.2 K/mm3 (4.4-11.0)
[2022-09-26 13:12] LABS: ALB/GLOB Ratio 1.2 RATIO (0.9-2.4); AST(SGOT) 13 U/L (15-37); Alanine Aminotransfer ALT/SGPT 20 U/L (13-56); Albumin, Serum 3.7 g/dL (3.2-5.0); Alkaline Phosphatase 64 U/L (45-117); Anion Gap 5 (5-15); BUN 12 mg/dL (7-18); BUN/Creat Ratio 15.5 RATIO (10-20); Chloride 108 mmol/L (98-107); Creatinine, Serum 0.77 mg/dL (0.55-1.02); EST Glomerular Filtration Rate 97 mL/min (>60); Est Glom Filt Rate - Afr Amer 118 mL/min (>60); Globulin 3.2 g/dL (2.2-4.2); Glucose 88 mg/dL (74-106); Potassium 4.6 mmol/L (3.5-5.1); Protein, Total 6.9 g/dL (6.4-8.2); Sodium Level 140 mmol/L (136-145)
== END | disposition home or self-care (01) ==
LOC: MTLAB 11:29
PROVIDERS: PCP Family Medicine; Visit Provider Internal Medicine Rheumatology
DX: M06.4 Inflammatory polyarthropathy (principal); F41.9 Anxiety disorder, unspecified; R21 Rash and other nonspecific skin eruption; J45.909 Unspecified asthma, uncomplicated; Z79.899 Other long term (current) drug therapy
CPT/HCPCS: 36415; 80053; 85025

== ENCOUNTER → 2023-02-28 | Outpatient (CLI) | payer BC, SELFPAY ==
[2023-02-28 10:29] LABS: Absolute Lymphocyte Count 1.75 X10^3/uL (0.83-4.51); Absolute Neutrophil Count 5.2 X10^3/uL (2.0-7.7); Basophil# 0.06 X10^3/uL; Basophil% 0.8 % (0-1); Eosinophil# 0.14 X10^3/uL; Eosinophils% 1.8 % (0-5); Hematocrit 38.5 % (37-47); Hemoglobin 12.4 g/dL (12.0-15.0); Lymphocyte # 1.75 X10^3/ul (0.83-4.51); Lymphocyte % 22.5 % (19-41); Mean Corp Hgb Conc 32.2 g/dL (32-36); Mean Corpuscular Hgb 28.4 pg (27.0-32.0); Mean Corpuscular Volume 88.3 fL (81-99); Mean Platelet Vol. 10.8 fl (6.2-12.0); Monocyte# 0.57 X10^3/uL; Monocyte% 7.3 % (0-10); NRBC Flagged by Analyzer 0 % (0-5); Neutrophil # 5.24 X10^3/uL (2.7-7.7); Neutrophil % 67.3 % (47-70); Platelet Count 392 K/mm3 (150-450); RBC Distribution Width CV 14.9 % (11.6-14.6); RBC Distribution Width SD 47.7 fl (35.1-43.9); Red Blood Count 4.36 M/mm3 (4.2-5.4); White Blood Count 7.8 K/mm3 (4.4-11.0)
[2023-02-28 10:55] LABS: Estradiol 65.7 pg/mL; Follicle Stimulating Hormone 5.5 mIU/mL; Luteinizing Hormone 6.2 mIU/mL; Prolactin 9.7 ng/mL; T4 Free Direct 1.01 ng/dL (0.76-1.46); Thyroid Stim Hormone (TSH) 1.62 uIU/mL (0.358-3.74)
== END | disposition home or self-care (01) ==
LOC: WOBLAB 09:46
PROVIDERS: PCP Family Medicine; Visit Provider Nurse Practitioner Women's Health
DX: N93.9 Abnormal uterine and vaginal bleeding, unspecified (principal)
CPT/HCPCS: 36415; 82670; 83001; 83002; 84146; 84439; 84443; 85025

== ENCOUNTER → 2023-06-21 | Outpatient (CLI) | payer BC, SELFPAY ==
[2023-06-21 09:19] LABS: Erythrocyte Sedimentation Rate 19 mm/hr (0-30)
[2023-06-21 09:21] LABS: Absolute Lymphocyte Count 1.28 X10^3/uL (0.83-4.51); Absolute Neutrophil Count 4.5 X10^3/uL (2.0-7.7); Basophil# 0.06 X10^3/uL; Basophil% 0.9 % (0-1); Eosinophils% 1.5 % (0-5); Hematocrit 38.7 % (37-47); Hemoglobin 12.6 g/dL (12.0-15.0); Lymphocyte # 1.28 X10^3/ul (0.83-4.51); Lymphocyte % 19.5 % (19-41); Mean Corp Hgb Conc 32.6 g/dL (32-36); Mean Corpuscular Hgb 28.3 pg (27.0-32.0); Mean Corpuscular Volume 86.8 fL (81-99); Mean Platelet Vol. 11.1 fl (6.2-12.0); Monocyte# 0.61 X10^3/uL; Monocyte% 9.3 % (0-10); NRBC Flagged by Analyzer 0 % (0-5); Neutrophil # 4.49 X10^3/uL (2.7-7.7); Neutrophil % 68.5 % (47-70); Platelet Count 286 K/mm3 (150-450); RBC Distribution Width CV 14.5 % (11.6-14.6); RBC Distribution Width SD 46.3 fl (35.1-43.9); Red Blood Count 4.46 M/mm3 (4.2-5.4); White Blood Count 6.6 K/mm3 (4.4-11.0)
[2023-06-21 10:08] LABS: Vitamin B12 405 pg/mL (211-911)
[2023-06-21 10:12] LABS: ALB/GLOB Ratio 0.9 RATIO (0.9-2.4); AST(SGOT) 14 U/L (15-37); Alanine Aminotransfer ALT/SGPT 20 U/L (13-56); Albumin, Serum 3.7 g/dL (3.2-5.0); Alkaline Phosphatase 75 U/L (45-117); Anion Gap 5 (5-15); BUN 10 mg/dL (7-18); BUN/Creat Ratio 11.9 RATIO (10-20); Calcium,Total 8.9 mg/dL (8.5-10.1); Chloride 110 mmol/L (98-107); Creatinine, Serum 0.84 mg/dL (0.55-1.02); EST Glomerular Filtration Rate 88 mL/min (>60); Est Glom Filt Rate - Afr Amer 106 mL/min (>60); Globulin 4.2 g/dL (2.2-4.2); Glucose 91 mg/dL (74-106); Iron 88 ug/dL (50-170); Iron Binding Capacity,Total 365 ug/dL (250-450); LDH 139 U/L (84-246); PERCENT IRON SATURATION 24.1 % (15.0-55.0); Protein, Total 7.9 g/dL (6.4-8.2); Sodium Level 139 mmol/L (136-145)
[2023-06-25 21:07] LABS: Albumin 3.7 g/dL (2.9-4.4); Alpha-1-Globulins 0.2 g/dL (0.0-0.4); Alpha-2-Globulins 0.9 g/dL (0.4-1.0); Cytoplasmic Ab (C-ANCA) <1:20 titer (Neg:<1:20); Endomysial Antibody IgA Negative (Negative); Gamma Globulin 1.4 g/dL (0.4-1.8); H. Pylori Antibody (IgG) 0.57 (0.00-0.79); Immunoglobulin A 206 mg/dL (87-352); Immunoglobulin E 21 IU/mL (6-495); Immunoglobulin G 1288 mg/dL (586-1602); Immunoglobulin M 152 mg/dL (26-217); PROEL- TOTAL PROTEIN 7.2 g/dL (6.0-8.5); Perinuclear Ab (P-ANCA) <1:20 titer (Neg:<1:20); t-Transglutaminase IgA <2 U/mL (0-3)
[2023-06-26 00:07] LABS: Anti-Centromere B Ab <0.2 AI (0.0-0.9); Anti-Chromatin <0.2 AI (0.0-0.9); Anti-Jo <0.2 AI (0.0-0.9); Anti-Scleroderma-70 AB <0.2 AI (0.0-0.9); Anti-dsDNA Ab 1 IU/mL (0-9); Beef <0.10 kU/L (Class 0); Chocolate <0.10 kU/L (Class 0); Clam <0.10 kU/L (Class 0); Codfish <0.10 kU/L (Class 0); Corn <0.10 kU/L (Class 0); Egg, White <0.10 kU/L (Class 0); Egg, Whole <0.10 kU/L (Class 0); Milk (Cow) <0.10 kU/L (Class 0); Peanut <0.10 kU/L (Class 0); Pork <0.10 kU/L (Class 0); RNP Ab <0.2 AI (0.0-0.9); SCALLOP <0.10 kU/L (Class 0); SESAME SEED <0.10 kU/L (Class 0); SJOGREN'S Anti-SS-A test < 0.2 AI (0.0-0.9); SJOGREN'S Anti-SS-B test < 0.2 AI (0.0-0.9); Shrimp <0.10 kU/L (Class 0); Smith Ab <0.2 AI (0.0-0.9); Soybean <0.10 kU/L (Class 0); Walnut, (Food) <0.10 kU/L (Class 0); Wheat <0.10 kU/L (Class 0)
== END | disposition home or self-care (01) ==
PROVIDERS: PCP Family Medicine; Referring Provider Internal Medicine Gastroenterology; Visit Provider Internal Medicine Gastroenterology
DX: R14.0 Abdominal distension (gaseous) (principal); R19.5 Other fecal abnormalities
CPT/HCPCS: 36415; 80053; 82607; 82746; 82784; 82785; 83516; 83540; 83550; 83615; 84165; 85025; 85652; 86003; 86005; 86140; 86225; 86235; 86255; 86256; 86334; 86677

== ENCOUNTER → 2023-06-25 | Outpatient (CLI) | payer BC, SELFPAY ==
[2023-06-30 00:07] LABS: Calprotectin, Stool 41 ug/g (0-120)
[2023-07-02 17:07] LABS: H. PYLORI STOOL AG Negative (Negative); Pancreatic Elastase, Fecal 396 (>200)
[2023-07-02 20:16] LABS: Giardia Lamblia, Stool EIA Negative
== END | disposition home or self-care (01) ==
LOC: LABSPEC 13:38
PROVIDERS: PCP Family Medicine; Referring Provider Internal Medicine Gastroenterology; Visit Provider Internal Medicine Gastroenterology
DX: R14.0 Abdominal distension (gaseous) (principal); R19.5 Other fecal abnormalities; K58.9 Irritable bowel syndrome, unspecified
CPT/HCPCS: 82653; 83630; 83993; 87177; 87209; 87329; 87338; 87506

== ENCOUNTER 2023-08-07 05:24 | Day surgery (SDC) | payer BC, SELFPAY ==
--- NOTE | 2023-08-06 06:30 | EGD_PTH ---
PATIENT: SHELBY CARVER LOC: EN U#:[id number] AGE/SX: 23/F ROOM: RE08/07/[address]: Dr. Soto Singh DO : 2000 BED: DIS: 08/07/2023 SPEC #: [id number] RECD: 08/07/23 10:43 STATUS: ABELARDO CLEM #: [id number] ROSE MARY: 08/06/23 06:[address]: Soto Singh DEPT: SURGICAL PATHOLOGY RECD BY: Jessy Briscoe ENTERED: 08/07/23 11:48 SP TYPE: EGD BIOPSY OT DR: Dr. Kathie Cody MD Tissues: A - Duodenum, NOS B - Gastric mucous membrane C - Esophageal mucous membrane D - Ileum, NOS E - COLON BIOPSY F - COLON BIOPSY G - Rectum, NOS Procedures: Special Stain Group II Surgery Specimen Level IV Alcian Blue/PAS (control) HEADER OPERATION: Colonoscopy with biopsy and polypectomy, EGD with biopsy PRE-OP DIAGNOSIS: Loose stools, abdominal bloating TISSUE SUBMITTED: A - Duodenum, B - Gastric body, C - Distal esophagus, D - Terminal ileum, E - Random colon, F - Splenic flexure polyp, G - Rectum biopsy MICROSCOPIC DIAGNOSIS A. Duodenum, biopsy: Focal gastric metaplasia. B. Gastric body, biopsy: Chronic gastritis. See comment. C. Distal esophagus, biopsy: Gastroesophageal junctional mucosa with mild chronic inflammation. Focal changes of reflux. No evidence of goblet cell metaplasia. See comment. D. Terminal ileum, biopsy: No pathologic change. E. Colon, random biopsy: No pathologic change. F. Colonic polyp at splenic flexure, biopsy: Inflammatory polyp. G. Rectum biopsy: No pathologic change. AM:grant 08/08/2023 COMMENT B. The results of immunohistochemistry for Helicobacter pylori will be reported separately ([id number]). C. Alcian blue/PAS stain with matched control supports the above diagnosis. MICROSCOPIC DESCRIPTION Slides are reviewed. GROSS DESCRIPTION A - Received in fixative is one container labeled with the patient's name and designated duodenum. The specimen consists of multiple irregular fragments of light nicolas soft tissue that in aggregate measure 0.6 x 0.6 x 0.1 cm. The specimen is totally submitted in one cassette. B - Received in fixative is one container labeled with the patient's name and designated gastric body. The specimen consists of multiple irregular fragments of light nicolas soft tissue that in aggregate measure 1.0 x 0.2 x 0.1 cm. The specimen is totally submitted in one cassette. C - Received in fixative is one container labeled with the patient's name and designated distal esophagus. The specimen consists of one irregular fragment of light nicolas soft tissue that measures 0.3 x 0.3 x 0.1 cm. The specimen is totally submitted in one cassette. D - Received in fixative is one container labeled with the patient's name and designated terminal ileum. The specimen consists of multiple irregular fragments of light nicolas soft tissue that in aggregate measure 1.5 x 0.4 x 0.1 cm. The specimen is totally submitted in one cassette. E - Received in fixative is one container labeled with the patient's name and designated random colon. The specimen consists of multiple irregular fragments of light nicolas soft tissue that in aggregate measure 1.2 x 0.5 x 0.1 cm. The specimen is totally submitted in one cassette. F - Received in fixative is one container labeled with the patient's name and designated splenic flexure polyp. The specimen consists of two irregular fragments of light nicolas soft tissue that in aggregate measure 0.6 x 0.6 x 0.2 cm. The specimen is totally submitted in one cassette. G - Received in fixative is one container labeled with the patient's name and designated rectum biopsy. The specimen consists of one irregular fragment of light nicolas soft tissue that measures 0.4 x 0.3 x 0.1 cm. The specimen is totally submitted in one cassette. / SJ:rg 08/07/2023 TC:3 CPT: 63782 x7, 18472
[2023-08-07] VITALS (7 sets, daily range): BP systolic 98–108; BP diastolic 61–76; PULSE 72–89; RESP 14–18; TEMP 36.3–38.1; O2SAT 96–100; BMI 27.3
[2023-08-07] MEDS: Lactated Ringers 1,000 ML 15 ML IV (05:55)
[2023-08-07 05:57] LABS: Internal QC Validated? YES +Cl - CLEAR BKGD; Pregnancy, Urine Negative Negative
--- NOTE | 2023-08-07 06:30 | IMM_PTH ---
PATIENT: SHELBY CARVER LOC: EN U#:[id number] AGE/SX: 23/F ROOM: RE08/07/[address]: Dr. Soto Singh DO : 2000 BED: DIS: 08/07/2023 SPEC #: [id number] RECD: 08/08/23 07:35 STATUS: ABELARDO REQ #: [id number] ROSE MARY: 08/07/23 06:[address]: Soto Singh DEPT: IMMUNOHISTOCHEMISTRY RECD BY: Jenn York ENTERED: 08/08/23 07:36 SP TYPE: IMMUNO OTHR DR: Dr. Kathie Cody MD Tissues: B - Stomach, NOS Procedures: H Pylori (initial) PHYSICIAN & INSTITUTION [place] [address] SPECIMEN INFORMATION: Tissue Source: B - Gastric body Clinical Info: Loose stools, abdominal bloating Specimen Number: [id number] CPT code: 91710 METHODOLOGY: Deparaffinized sections of prefer/formalin-fixed tissue or PAP/DQ stained slides are incubated with monoclonal/polyclonal antibodies/oligonucleotide probes. Localization is made via biotin free immunoperoxidase method. Appropriate controls are performed and reacted as expected. Results on target cell population are indicated in the following table: RESULTS: ANTIBODY / CLONE RESULT Block B H Pylori (polyclonal) negative These tests were developed and their performance characteristics determined by [facility]. They may not have been cleared or approved by the U.S. Food and Drug Administration. The FDA has determined that such clearance or approval is not necessary. The above immunohistochemical/dualISH markers are ordered and reviewed by the Pathologist. INTERPRETATION: B. Gastric body, biopsy: Negative for Helicobacter pylori organisms. AM:grant 08/09/2023
--- NOTE | 2023-08-07 06:46 | HP.PCM_ITS ---
History and Physical Date of Admission: 08/07/23 22 F who presents to the office today for Gynecology OV for persistent bloating and heavy menses. Recommend GI referral for abdominal bloating. *BGI 9.15.23 abdominal bloating/discomfort, fatigue and lower pelvic cramping; BM are typically loose occurring 4-5/day without identifiable trigger with no change in additional symptoms. ROS Const Constitutional: Positive for other (6 system ROS completed with pertinent findings in HPI otherwise normal.) Exam Const General: cooperative and healthy appearing [facility] Head: normocephalic and atraumatic Ears: hearing grossly normal bilaterally Nose: external nose normal Face and sinus: normal facial exam and face symmetric Mouth: oral mucosae normal Throat: posterior oropharynx normal Eyes General: appearance normal, both eyes and all related structures Resp Effort & Inspection: normal respiratory effort Auscultation: Bilateral: Clear to Auscultation Cardio Palpation: normal PMI Rate: regular rate Rhythm: regular rhythm Skin General: no rashes or lesions noted Neuro General: patient alert and CN's II-XI intact bilaterally Psych Appearance: grossly normal Mental Status: mental status grossly normal Quality Reporting Tobacco Screening ([facility] 138) Smoking Status: Never smoker Assessment and Plan Assessment and Plan (1) Loose stools: Status: Chronic (2) Abdominal bloating: Status: Acute Plan: The differential diagnosis for her symptoms does include irritable bowel syndrome, exocrine pancreatic insufficiency, inflammatory bowel disease, celiac disease, autoimmune enteritis, accelerated gastric emptying secondary to dumping syndrome. We will send antibody testing and she may need other biochemical work-up and imaging studies. We will check her stools for H. pylori. Pending her work-up we will she also may need an upper endoscopy evaluate upper GI tract for diseases such as gastritis or less likely peptic ulcer disease Orders: Orders Stool Lactoferrin/WBC Today R14.0 - Abdominal distension (gaseous), R19.5 - Other fecal abnormalities Erythrocyte Sed Rate Today R14.0 - Abdominal distension (gaseous), R19.5 - Other fecal abnormalities ANCA Today R14.0 - Abdominal distension (gaseous), R19.5 - Other fecal abnormalities LDH Today R14.0 - Abdominal distension (gaseous), R19.5 - Other fecal abnormalities CRP Today R14.0 - Abdominal distension (gaseous), R19.5 - Other fecal abnormalities IVAN Comprehensive Panel Today R14.0 - Abdominal distension (gaseous), R19.5 - Ot her fecal abnormalities Immunoglobulins G/A/M/E Today R14.0 - Abdominal distension (gaseous), R19.5 - Other fecal abnormalities Celiac Disease Profile Today R14.0 - Abdominal distension (gaseous), R19.5 - Other fecal abnormalities CBC W/Diff, Automated Today R14.0 - Abdominal distension (gaseous), R19.5 - Other fecal abnormalities SOULEYMANE + Protein Elect, Serum Today R14.0 - Abdominal distension (gaseous), R19.5 - Other fecal abnormalities Calprotectin, Stool Today R14.0 - Abdominal distension (gaseous), R19.5 - Other fecal abnormalities Comprehensive Metabolic Profil Today R14.0 - Abdominal distension (gaseous), R19.5 - Other fecal abnormalities Vitamin B12 Today R14.0 - Abdominal distension (gaseous), R19.5 - Other fecal abnormalities Folates, (Folic Acid) Today R14.0 - Abdominal distension (gaseous), R19.5 - Other fecal abnormalities Iron+Iron Binding Capacity Today R14.0 - Abdominal distension (gaseous), R19.5 - Other fecal abnormalities Miscellaneous Lab Procedure Today R14.0 - Abdominal distension (gaseous), R19.5 - Other fecal abnormalities ENTERIC PATHOGEN PANEL STOOL Today K58.9 - Irritable bowel syndrome without diarrhea, R14.0 - Abdominal distension (gaseous), R19.5 - Other fecal abnormalities CDIFF (PCR) Today R14.0 - Abdominal distension (gaseous), R19.5 - Other fecal abnormalities Pancreatic Elastase, Fecal Today R14.0 - Abdominal distension (gaseous), R19.5 - Other fecal abnormalities OVA+PARA w/Giardia EIA [id number] Today R14.0 - Abdominal distension (gaseous), R19.5 - Other fecal abnormalities Allergen, Food Profile Today R14.0 - Abdominal distension (gaseous), R19.5 - Other fecal abnormalities Allergen, Rast Food Profile Today R14.0 - Abdominal distension (gaseous), R19.5 - Other fecal abnormalities H. Pylori Antibody (IgG) Today R19.5 - Other fecal abnormalities H. PYLORI STOOL AG Today R19.5 - Other fecal abnormalities I have examined the patient and the H&P has been reviewed. There are no clinical changes since date of exam.
--- NOTE | 2023-08-07 07:25 | OP.CCLET_ITS ---
08/07/2023 Kathie [address] [place] [address] Re : Upper GI endoscopy procedure for Belen Jimenez Dear Dr. Cody This procedure was performed on Monday, August 07, 2023. My impressions and recommendations are as follows: Impressions : - Z-line irregular, 38 cm from the incisors. Biopsied. - Erythematous mucosa in the gastric body. Biopsied. - Chronic duodenitis. Biopsied. Recommendations : - Discharge patient to home. - Resume previous diet. - Continue present medications. - Await pathology results. My findings are described in the full procedure note, which is enclosed. If I can be of further assistance, please feel free to contact me at . Sincerely, Soto Singh, 08/07/2023 7:25:03 AM This report has been signed electronically.
--- NOTE | 2023-08-07 07:25 | OP.EGD_ITS ---
Patient Name: Belen Jimenez Procedure Date: 08/07/2023 6:26 AM Date of : 2000 Age: 23 Procedure: Upper GI endoscopy Indications: Epigastric abdominal pain, Functional Dyspepsia Providers: Soto Singh DO Referring MD: Soto Singh DO Medicines: Monitored Anesthesia Care Patient Profile: This is a 23 year old female. Refer to note in patient chart for documentation of history and physical. Patient has symptoms of chronic abdominal cramping, chronic epigastric abdominal pain and chronic dyspepsia. Complications: No immediate complications. Procedure: Pre-Anesthesia Assessment: - Prior to the procedure, a History and Physical was performed, and patient medications and allergies were reviewed. The patient is competent. The risks and benefits of the procedure and the sedation options and risks were discussed with the patient. All questions were answered and informed consent was obtained. Patient identification and proposed procedure were verified by the physician in the pre-procedure area. Mental Status Examination: alert and oriented. Airway Examination: normal oropharyngeal airway and neck mobility. Respiratory Examination: clear to auscultation. CV Examination: normal. Prophylactic Antibiotics: The patient does not require prophylactic antibiotics. Prior Anticoagulants: The patient has taken no anticoagulant or antiplatelet agents. ASA Grade Assessment: II - A patient with mild systemic disease. After reviewing the risks and benefits, the patient was deemed in satisfactory condition to undergo the procedure. The anesthesia plan was to use monitored anesthesia care (MAC). Immediately prior to administration of medications, the patient was re-assessed for adequacy to receive sedatives. The heart rate, respiratory rate, oxygen saturations, blood pressure, adequacy of pulmonary ventilation, and response to care were monitored throughout the procedure. The physical status of the patient was re-assessed after the procedure. After obtaining informed consent, the endoscope was passed under direct vision. Throughout the procedure, the patient's blood pressure, pulse, and oxygen saturations were monitored continuously. The Colonoscope was introduced through the mouth, and advanced to the second part of duodenum. The upper GI endoscopy was accomplished without difficulty. The patient tolerated the procedure well. Scope In: 6:55:38 AM Scope Out: 7:00:09 AM Total Procedure Duration Time 0 hours 4 minutes 31 seconds Findings: The Z-line was irregular and was found 38 cm from the incisors. Biopsies were taken with a cold forceps for histology. Verification of patient identification for the specimen was done. Estimated blood loss was minimal. Patchy mildly erythematous mucosa without bleeding was found in the gastric body. Biopsies were taken with a cold forceps for histology. Verification of patient identification for the specimen was done. Estimated blood loss was minimal. Biopsies were taken with a cold forceps for Helicobacter pylori testing. Verification of patient identification for the specimen was done. Estimated blood loss was minimal. Patchy mild inflammation characterized by congestion (edema) and erythema was found in the duodenal bulb. Biopsies were taken with a cold forceps for histology. Verification of patient identification for the specimen was done. Estimated blood loss was minimal. Impression: - Z-line irregular, 38 cm from the incisors. Biopsied. - Erythematous mucosa in the gastric body. Biopsied. - Chronic duodenitis. Biopsied. Recommendation: - Discharge patient to home. - Resume previous diet. - Continue present medications. - Await pathology results. Procedure Code(s): --- Professional --- 17751, Esophagogastroduodenoscopy, flexible, transoral; with biopsy, single or multiple CPT copyright 2021 [employer]. All rights reserved. The codes documented in this report are preliminary and upon computer language coder review may be revised to meet current compliance requirements. Soto Singh DO 08/07/2023 7:25:03 AM This report has been signed electronically. Number of Addenda: 0 Note Initiated On: 08/07/2023 6:26 AM
--- NOTE | 2023-08-07 07:29 | OP.COLON_ITS ---
Patient Name: Belen Jimenez Procedure Date: 08/07/2023 7:00 AM Date of : 2000 Age: 23 Procedure: Colonoscopy Indications: Clinically significant diarrhea of unexplained origin Providers: Soto Singh DO Referring MD: Soto Singh DO Medicines: Monitored Anesthesia Care Patient Profile: This is a 23 year old female. Refer to note in patient chart for documentation of history and physical. Patient has symptoms of chronic abdominal cramping, chronic epigastric abdominal pain and chronic dyspepsia. Last Colonoscopy: none. The patient's first colonoscopy is today. Complications: No immediate complications. Procedure: Pre-Anesthesia Assessment: - Prior to the procedure, a History and Physical was performed, and patient medications and allergies were reviewed. The patient is competent. The risks and benefits of the procedure and the sedation options and risks were discussed with the patient. All questions were answered and informed consent was obtained. Patient identification and proposed procedure were verified by the physician in the pre-procedure area. Mental Status Examination: alert and oriented. Airway Examination: normal oropharyngeal airway and neck mobility. Respiratory Examination: clear to auscultation. CV Examination: normal. Prophylactic Antibiotics: The patient does not require prophylactic antibiotics. Prior Anticoagulants: The patient has taken no anticoagulant or antiplatelet agents. ASA Grade Assessment: II - A patient with mild systemic disease. After reviewing the risks and benefits, the patient was deemed in satisfactory condition to undergo the procedure. The anesthesia plan was to use monitored anesthesia care (MAC). Immediately prior to administration of medications, the patient was re-assessed for adequacy to receive sedatives. The heart rate, respiratory rate, oxygen saturations, blood pressure, adequacy of pulmonary ventilation, and response to care were monitored throughout the procedure. The physical status of the patient was re-assessed after the procedure. After I obtained informed consent, the scope was passed under direct vision. Throughout the procedure, the patient's blood pressure, pulse, and oxygen saturations were monitored continuously. The Colonoscope was introduced through the anus and advanced to the terminal ileum. The colonoscopy was performed without difficulty. The patient tolerated the procedure well. The quality of the bowel preparation was adequate. The terminal ileum, ileocecal valve, appendiceal orifice, and rectum were photographed. Scope In: 7:01:36 AM Scope Withdrawal Time 0 hours 11 minutes 37 seconds Scope Out: 7:16:24 AM Total Procedure Duration Time 0 hours 14 minutes 48 seconds Findings: The perianal and digital rectal examinations were normal. Patchy mild inflammation was found in the rectum, in the recto-sigmoid colon, at the splenic flexure and in the ascending colon. Biopsies were taken with a cold forceps for histology. Verification of patient identification for the specimen was done. Estimated blood loss was minimal. Two pedunculated polyps were found in the splenic flexure. The polyps were 6 mm in size. These polyps were removed with a hot snare. Resection and retrieval were complete. Verification of patient identification for the specimen was done. Estimated blood loss was minimal. Localized mild inflammation was found in the terminal ileum. Biopsies were taken with a cold forceps for histology. Verification of patient identification for the specimen was done. Estimated blood loss was minimal. Impression: - Patchy mild inflammation was found in the rectum, in the recto-sigmoid colon, at the splenic flexure and in the ascending colon secondary to colitis. Biopsied. - Two 6 mm polyps at the splenic flexure, removed with a hot snare. Resected and retrieved. - Mild inflammation was found in the ileum secondary to ileitis. Biopsied. Recommendation: - Discharge patient to home. - Resume previous diet. - Continue present medications. - Await pathology results. - Repeat colonoscopy in 5 years for surveillance based on pathology results. Procedure Code(s): --- Professional --- 35518, Colonoscopy, flexible; with removal of tumor(s), polyp(s), or other lesion(s) by snare technique 73722, 59, Colonoscopy, flexible; with biopsy, single or multiple CPT copyright 2021 [employer]. All rights reserved. The codes documented in this report are preliminary and upon health safety engineer review may be revised to meet current compliance requirements. Soto Singh DO 08/07/2023 7:29:20 AM This report has been signed electronically. Number of Addenda: 0 Note Initiated On: 08/07/2023 7:00 AM
--- NOTE | 2023-08-07 07:30 | OP.CCLET_ITS ---
08/07/2023 Kathie [address] [place] [address] Re : Colonoscopy procedure for Belen Jimenez Dear Dr. Cody This procedure was performed on Monday, August 07, 2023. My impressions and recommendations are as follows: Impressions : - Patchy mild inflammation was found in the rectum, in the recto-sigmoid colon, at the splenic flexure and in the ascending colon secondary to colitis. Biopsied. - Two 6 mm polyps at the splenic flexure, removed with a hot snare. Resected and retrieved. - Mild inflammation was found in the ileum secondary to ileitis. Biopsied. Recommendations : - Discharge patient to home. - Resume previous diet. - Continue present medications. - Await pathology results. - Repeat colonoscopy in 5 years for surveillance based on pathology results. My findings are described in the full procedure note, which is enclosed. If I can be of further assistance, please feel free to contact me at . Sincerely, Soto Singh DO 08/07/2023 7:29:20 AM This report has been signed electronically.
== END 2023-08-07 08:07 | disposition home or self-care (01) ==
LOC: EN 05:29 → AC 05:34
PROVIDERS: Anesthesiology; PCP Family Medicine; Referring Provider Family Medicine; Visit Provider Internal Medicine Gastroenterology
PROC: 0DJD8ZZ Inspection of Lower Intestinal Tract, Via Natural or Artificial Opening Endoscopic (ICD-10-PCS; CPT 45378; principal; 2023-08-07 06:25)
DX: K31.A19 Gastric intestinal metaplasia without dysplasia, unspecified site (principal); K52.9 Noninfective gastroenteritis and colitis, unspecified; K29.80 Duodenitis without bleeding; K63.5 Polyp of colon; K29.50 Unspecified chronic gastritis without bleeding; J45.909 Unspecified asthma, uncomplicated; Z79.899 Other long term (current) drug therapy; K20.90 Esophagitis, unspecified without bleeding
CPT/HCPCS: 45385; 43239; 45380; 81025; 88305; 88313; 88342; J7120

== ENCOUNTER 2023-11-20 14:30 | Outpatient (RCR) | payer BC, SELFPAY ==
--- NOTE | 2023-10-24 16:28 | HP.OTEVAL_ITS ---
Patient's Visit Information Visit Information Visit Information: SHELBY CARVER is a 23 year old F, referred to Occupational Therapy by VICKEY HA, with a diagnosis of Dequervain's release/ SL instability. Date of Evaluation: 10/24/23 Occupational Therapist: Maryann Burns, JORGE/Ranjeet, CHT Subjective Subjective: This 23 year old female was seen for OT eval with dx of right wrist instability, and DeQuervain's tenosynovitis. pt states she ended up having sx about 5 weeks ago. pt states she was in splint for 2 weeks and cast for 2 weeks and on 10/21/23 pt was placed in right wrist cock-up. pt is right handed pt works for [employer] from home working 40hrs a week. 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 Pain right wrist: Current Pain Intensity: 4 Pain Intensity Range: 0 and 3 ROM Forearm: right WNL left WNL Wrist: right NT left 75/90 Opposition: Kapandji opposition scale right 8 left 10 ROM Comments: pt demo full functional ROM of digits will initiate dart throwers and at week 6 get wrist flex/ext measurements Strength Advanced Clinical Specialist: right NT left 80# Lateral Pinch: right NT left 14# Tripod Pinch: right NT left 12# Strength Comments: pt right strength will be tested at later date Sensation Sensation Comments: pt states LF has been tingling with elbow position Quick DASH-Disab of Arm,Shoulder& Hand Quick DASH Score: 43.3325 Goals Goal:100% adherence to protocol: Yes Comment: Dr. Varma guidelines Goal:Daily scar massage when approriate: Yes Goal:ROM equal to unaffected hand: Yes Goal:Advanced Clinical Specialist/Pinch strength at least 75% of unaffected hand: Yes Goal:No pain with affected hand use: Yes Goal:Full use of affected hand in daily activities including work: Yes Rehabilitation General Assessment: pt arrives about 5 weeks s/p from Scapholunate stabilization surgery/ DeQuervain's release. Pt demo with with limited functional ROM and precautions prohibiting use of right hand with ADLs and IADLS. pt would benefit from skilled OT services 1-2x week for 8 weeks to return pt to her PLOF. Rehabilitation Potential: Good Anticipated Interventions Anticipated Interventions: A/AAROM/PROM, Strengthening, Edema Control, Scar Care, Desensitization, Modalities, Orthoses, Joint Protection/Energy Conservation, Ergonomic Education, Fine Motor Coord/Babak, Education re assistive Equipment, Education re Diagnosis and Home Program Visit Plan Frequency: 1-2x /Week Duration: 2 Months General Plan: 4 wks cock up wrist splint. begin dart throwers motion with OT. NO Flexion Extension 6 wks begin full wrist ROM( AROM/PROM) 8 wks begin strengthening - Aggressive PROM - wean from splint TEXT: Thank you for the opportunity to evaluate your patient. For Medicare and Medicare HMO plans, please review the plan of care and approve it. It will need to be FAXED BACK to us at [phone] for Medicare purposes. Please let me know if there are questions or concerns regarding this plan of care. Physician Signature: Date:
== END 2023-11-20 19:00 | disposition home or self-care (01) ==
LOC: OT 14:30
PROVIDERS: PCP Family Medicine
DX: M25.331 Other instability, right wrist (principal); M65.4 Radial styloid tenosynovitis [de Quervain]
CPT/HCPCS: 97110; 97140; 97166; 97530

== ENCOUNTER → 2025-05-07 | Outpatient (CLI) | payer BC, SELFPAY ==
[2025-05-07 14:13] LABS: Anion Gap 10 (5-15); BUN 13 mg/dL (4-19); BUN/Creat Ratio 14.5 RATIO (10-20); Calcium,Total 9.6 mg/dL (7.6-11.0); Carbon Dioxide 23.5 mmol/L (21.0-32.0); Chloride 107 mmol/L (98-108); Cholesterol 146 mg/dL (<=200); Glucose 92 mg/dL (70-99); Low Density Lipoprotein Calc. 91 mg/dL; Potassium 5.2 mmol/L (3.3-5.1); Triglycerides 67 mg/dL; Very Low Density Lipoprotein 13 mg/dL (5-40); cholesterol:hdl ratio screen 3.54
== END | disposition home or self-care (01) ==
LOC: MFPLAB 09:57
PROVIDERS: PCP Family Medicine; Visit Provider Family Medicine
DX: Z00.00 Encounter for general adult medical examination without abnormal findings (principal)
CPT/HCPCS: 36415; 80048; 80061